=== PATIENT | female | born 1975 | race Caucasian/White ===

== ENCOUNTER 2024-01-21 12:06 | Emergency (ER) | payer BC ==
[~2024-01-21] VITALS: Ht 160 cm; Wt 75.6 kg
[2024-01-21 12:39] VITALS: TEMP 98.2
[2024-01-21 13:02] LABS: BASOPHILS # (AUTO) 0.1 X10'3 (0-0.2); BASOPHILS % (AUTO) 0.6 % (0-1); EOSINOPHILS % (AUTO) 0.3 % (0-6); HEMATOCRIT 45.1 % (35.0-45.0); HEMOGLOBIN 14.8 g/dl (12.0-16.0); LYMPHOCYTES # (AUTO) 2.1 X10'3 (1.1-4.8); LYMPHOCYTES % (AUTO) 19.4 % (21-51); MEAN CORPUSCULAR HEMOGLOBIN 28.3 PG (27.0-31.0); MEAN CORPUSCULAR HGB CONC 32.8 g/dL (33.0-36.5); MEAN CORPUSCULAR VOLUME 86.2 FL (78-98); MEAN PLATELET VOLUME 7.5 FL (7.4-10.4); MONOCYTES # (AUTO) 0.5 X10'3 (0-0.9); MONOCYTES % (AUTO) 4.6 % (2-12); NEUTROPHILS # (AUTO) 8.3 X10'3 (1.8-7.7); NEUTROPHILS % (AUTO) 75.1 % (42-75); PLATELET COUNT 309 X10'3 (140-440); RED BLOOD COUNT 5.23 X10'6 (4.20-5.60)
[2024-01-21 13:16] LABS: ALANINE AMINOTRANSFERASE 25 U/L (12-78); ALKALINE PHOSPHATASE 94 IU/L (46-116); ANION GAP 8 (8-16); ASPARTATE AMINO TRANSFERASE 16 U/L (10-37); BLOOD UREA NITROGEN 11 MG/DL (7-18); BUN/CREATININE RATIO 12.1 (10.0-20.0); CALCIUM 9.1 MG/DL (8.5-10.1); CHLORIDE 100 MMOL/L (99-107); CREATININE 0.91 MG/DL (0.40-0.90); GLUCOSE 133 MG/DL (70-104); POTASSIUM 3.5 MMOL/L (3.5-5.1); SODIUM 138 MMOL/L (135-145); TOTAL CARBON DIOXIDE 30.2 MMOL/L (24-32); TOTAL PROTEIN 8.1 G/DL (6.4-8.2); eCRCL 63 ML/MIN; eGFR 66 ML/MIN
[2024-01-21 13:23] LABS: PRO BRAIN NATRIURETIC PEPTIDE 159 PG/ML (0-125)
[2024-01-21] MEDS: hydrALAZINE 25 MG tablet PO STA (13:29)
[2024-01-21] MEDS ORDERED: IRBE150T51 PO (15:20)
[2024-01-21 15:52] VITALS: BP 158/89; PULSE 78; RESP 14; O2SAT 98
== END 2024-01-21 15:58 | disposition home or self-care (01) ==
LOC: ER 12:07
DX: I10 Essential (primary) hypertension (principal); Z79.899 Other long term (current) drug therapy; Z98.890 Other specified postprocedural states
CPT/HCPCS: 36415; 71045; 80053; 83880; 84484; 85025; 93005; 99285

== ENCOUNTER 2024-11-11 06:14 | Outpatient (CLI) | payer OTHER ==
[2024-11-11] MEDS ORDERED: iohexol 300 MG/1 ML 50ml polymer ONE (06:36)
[2024-11-11] MEDS ORDERED: LIDOcaine 1%/PF 5ML 10 MG/ML VIAL ONE (06:37)
[2024-11-11] MEDS ORDERED: LIDOcaine 1% 30ml preserv. free vial ONE (06:37)
[2024-11-11] MEDS ORDERED: GADOTERATE MEGLUMINE 7.5 MMOL/15 ML VIAL IV ONE (06:37)
--- NOTE | 2024-11-11 09:46 | RADIOLOGY REPORT ---
C-ARM FLUOROSCOPY: PROCEDURE: Left shoulder injection FLUOROSCOPY TIME: 1 DAP: For mgy FINDINGS: Spot intraoperative C arm radiographs demonstrating left shoulder injection for MRI. IMPRESSION: Please refer to surgical report for detailed findings.
--- NOTE | 2024-11-11 10:52 | RADIOLOGY REPORT ---
CLINICAL INDICATION: ADHESIVE CAPSULITIS OF LEFT SHOULDER COMPARISON: None TECHNIQUE: Multiplanar, multi-sequence MRI of the left shoulder was performed after the uneven tful intra-articular administration of dilute gadolinium solution. Contrast: None INTERPRETATION: Glenohumeral joint: The joint is appropriately distended with intra-articular contrast. There is no f racture or bone marrow edema. The alignment is normal. There is no focal cartilage defect. Acromioclavicular joint: The acromoclavicular joint is normal in appearance. Rotator cuff and bursae: The supraspinatus, infraspinatus, teres minor and subscapularis tendons are intact. There is no muscle atrophy. There is no subacromial subdeltoid bursal fluid. Biceps tendon and glenoid labrum: The biceps tendon is normal in appearance. The labrum is unremarkab le. Other: No scarring in the axillary recess or the rotator interval to suggest adhesive capsulitis. IMPRESSION: 1. Normal MR arthrogram of the left shoulder. No MR findings to suggest adhesive capsulitis.
== END 2024-11-11 23:59 | disposition home or self-care (01) ==
LOC: RAD 06:14
PROVIDERS: ATTEND Family Medicine
DX: M75.02 Adhesive capsulitis of left shoulder (principal); I10 Essential (primary) hypertension; E11.9 Type 2 diabetes mellitus without complications; E78.00 Pure hypercholesterolemia, unspecified; Z79.1 Long term (current) use of non-steroidal anti-inflammatories (NSAID); Z79.84 Long term (current) use of oral hypoglycemic drugs; Z79.899 Other long term (current) drug therapy; Z98.891 History of uterine scar from previous surgery; Z90.49 Acquired absence of other specified parts of digestive tract
CPT/HCPCS: 23350; 73222; 77002; A9575; J2003; J3490; Q9967